=== PATIENT | male | born 1930 | race Caucasian/White ===

== ENCOUNTER 2018-12-27 12:45 | Emergency (ER) | payer MEDICARE, OTHER ==
[2018-12-27] MEDS ORDERED: Ondansetron 4 MG/2 ML SDV IVPUSH ONE (13:22)
[2018-12-27] MEDS ORDERED: Sodium Chloride 0.9% 1,000 ML IV ONE (13:22)
--- NOTE | 2018-12-27 14:05 | EDM.PDOC ---
<Rusty Bingham - Last Filed: 12/27/18 15:25> ED HPI GENERAL MEDICAL PROBLEM - General Chief Complaint: Cardiovascular Problem Stated Complaint: [facility] Time Seen by Provider: 12/27/18 12:56 - Related Data Allergies Allergy/AdvReac Type Severity Reaction Status Date / Time No Known Allergies Allergy Verified 12/27/18 12:53 Home Meds: Home Meds Hydrochlorothiazide 25 mg PO DAILY 09/26/16 [History] Levothyroxine 25 mcg PO DAILY 09/26/16 [History] Lisinopril [Prinivil] 20 mg PO DAILY 09/26/16 [History] Sildenafil [Revatio] 20 mg PO ASDIRECTED 09/26/16 [History] Simvastatin [Zocor] 40 mg PO DAILY 09/26/16 [History] Apixaban [Eliquis] 2.5 mg PO DAILY 12/27/18 [History] Nystatin/Triamcinolone Crm [Mycolog Crm] 1 applic TOP BID PRN 12/27/18 [History] metroNIDAZOLE [Metrocream] 1 applic TOP DAILY 12/27/18 [History] ED EXAM, GENERAL - Physical Exam Neurological: Oriented, CN II-XII Intact, No Motor/Sensory Deficits, Inattentive , Slow to Respond, Other (Unable to perform finger-nose or hand-flip) ED CARDIOLOGY PROCEDURES - Endotracheal Intubation Time of Intubation: 15:01 ET Intubation Indication: Airway Protection Preparation: Suction, Balloon Tested, BVM Set Up, Difficult Airway Equip Pre-Oxygenation: Assisted with BVM, 100% FiO2 Anesthesia Meds: Etomidate (6.8 mg), Vecuronium (10 mg) Placement: Orotracheal, Cuffed, Uncomplicated Placement Cords Visualized: Yes, Grade 1 ETT Size In mm: 8.0 Number of Attempts: 1 Confirmed By: CO2 Indicator, Bilateral Breath Sounds, Chest Xray Tube Secured By: By RT Course - Vital Signs Last Recorded V/S: Last Vital Signs Temp 98.4 F 12/27/18 16:00 Pulse 64 12/27/18 16:00 Resp 14 12/27/18 16:00 BP 116/58 L 12/27/18 16:00 Pulse Ox 100 12/27/18 16:00 - Orders/Labs/Meds Orders: Active Orders 24 hr Category Date Time Status EKG Documentation Completion [RC] ASDIRECTED Care 12/27/18 12:55 Active PATIENT RETYPE [BBK] Routine Lab 12/27/18 15:38 Ordered EKG 12 Lead [EK] Stat Ther 12/27/18 12:55 Ordered Labs: Laboratory Tests 12/27/18 12/27/18 12/27/18 Range/Units 14:35 14:35 14:35 WBC 8.57 (4.23-9.07) K/mm3 RBC 4.30 L (4.63-6.08) M/mm3 Hgb 12.9 L (13.7-17.5) gm/L Hct 38.4 L (40.1-51.0) % MCV 89.3 (79.0-92.2) fl MCH 30.0 (25.7-32.2) pg MCHC 33.6 (32.2-35.5) g/dl RDW Std Deviation 42.1 (35.1-43.9) fL Plt Count 122 L (163-337) K/mm3 MPV 9.7 (9.4-12.3) fl Neut % (Auto) 85.6 H (34.0-67.9) % Lymph % (Auto) 5.6 L (21.8-53.1) % Russell % (Auto) 8.1 (5.3-12.2) % Eos % (Auto) 0.4 L (0.8-7.0) Baso % (Auto) 0.1 (0.1-1.2) % Neut # (Auto) 7.34 H (1.78-5.38) K/mm3 Lymph # (Auto) 0.48 L (1.32-3.57) K/mm3 Russell # (Auto) 0.69 (0.30-0.82) K/mm3 Eos # (Auto) 0.03 L (0.04-0.54) K/mm3 Baso # (Auto) 0.01 (0.01-0.08) K/mm3 Manual Slide Review Normal smear PT (9.5-12.1) SECONDS INR Sodium 131 L (136-145) mEq/L Potassium 3.5 (3.5-5.1) mEq/L Chloride 97 L (98-107) mEq/L Carbon Dioxide 24 (21-32) mEq/L Anion Gap 13.5 (5-15) BUN 19 H (7-18) mg/dL Creatinine 1.3 (0.7-1.3) mg/dL Est Cr Clr Drug Dosing 37.80 mL/min Estimated GFR (MDRD) 52 (>60) mL/min BUN/Creatinine Ratio 14.6 (14-18) Glucose 114 (83-115) mg/dL Calcium 8.7 (8.5-10.1) mg/dL Total Bilirubin 0.6 (0.2-1.0) mg/dL AST 27 (15-37) U/L ALT 21 (16-63) U/L Alkaline Phosphatase 74 (46-116) U/L Total Protein 6.7 (6.4-8.2) g/dl Albumin 3.5 (3.4-5.0) g/dl Globulin 3.2 gm/dL Albumin/Globulin Ratio 1.1 (1-2) Blood Type O NEGATIVE Gel Antibody Screen Negative 12/27/18 Range/Units 14:58 WBC (4.23-9.07) K/mm3 RBC (4.63-6.08) M/mm3 Hgb (13.7-17.5) gm/L Hct (40.1-51.0) % MCV (79.0-92.2) fl MCH (25.7-32.2) pg MCHC (32.2-35.5) g/dl RDW Std Deviation (35.1-43.9) fL Plt Count (163-337) K/mm3 MPV (9.4-12.3) fl Neut % (Auto) (34.0-67.9) % Lymph % (Auto) (21.8-53.1) % Russell % (Auto) (5.3-12.2) % Eos % (Auto) (0.8-7.0) Baso % (Auto) (0.1-1.2) % Neut # (Auto) (1.78-5.38) K/mm3 Lymph # (Auto) (1.32-3.57) K/mm3 Russell # (Auto) (0.30-0.82) K/mm3 Eos # (Auto) (0.04-0.54) K/mm3 Baso # (Auto) (0.01-0.08) K/mm3 Manual Slide Review PT 12.4 H (9.5-12.1) SECONDS INR 1.14 Sodium (136-145) mEq/L Potassium (3.5-5.1) mEq/L Chloride (98-107) mEq/L Carbon Dioxide (21-32) mEq/L Anion Gap (5-15) BUN (7-18) mg/dL Creatinine (0.7-1.3) mg/dL Est Cr Clr Drug Dosing mL/min Estimated GFR (MDRD) (>60) mL/min BUN/Creatinine Ratio (14-18) Glucose (83-115) mg/dL Calcium (8.5-10.1) mg/dL Total Bilirubin (0.2-1.0) mg/dL AST (15-37) U/L ALT (16-63) U/L Alkaline Phosphatase (46-116) U/L Total Protein (6.4-8.2) g/dl Albumin (3.4-5.0) g/dl Globulin gm/dL Albumin/Globulin Ratio (1-2) Blood Type Gel Antibody Screen Meds: Medications Discontinued Medications Generic Name Dose Route Start Last Admin Trade Name Freq PRN Reason Stop Dose Admin Etomidate 6.8 mg 12/27/18 15:32 12/27/18 15:35 Amidate IVPUSH 12/27/18 15:33 6.8 mg ONETIME ONE Administration Factor IX (Pha) 1,500 unit 12/27/18 15:00 12/27/18 15:21 Kcentra IV 12/27/18 15:01 1,500 unit ONETIME ONE Administration Sodium Chloride 1,000 mls @ 999 mls/hr 12/27/18 13:22 12/27/18 13:55 Normal Saline IV 12/27/18 14:22 999 mls/hr ONETIME ONE Administration Labetalol HCl 5 mg 12/27/18 15:16 Normodyne IVPUSH 12/27/18 15:17 ONETIME STA Protocol Ondansetron HCl 4 mg 12/27/18 13:22 12/27/18 13:56 Zofran IVPUSH 12/27/18 13:23 4 mg ONETIME ONE Administration Vecuronium [place] 10 mg 12/27/18 15:33 12/27/18 15:36 Vecuronium IVPUSH 12/27/18 15:34 10 mg ONETIME ONE Administration - Re-Assessments/Exams Free Text/Narrative Re-Assessment/Exam: 12/27/18 14:27 Preliminary review of the CT of the head appears to demonstrate a left cerebellar infarct, with extension to the third and fourth ventricles, and, likely, to the posterior horns of the lateral ventricles. There is edema surrounding the left cerebellar hematoma. Images were pushed to [facility] at 14:12. Case discussed with [facility] at 14:14. Case then discussed with Dr. York at 14:20. He agreed with our plan to give the patient K Centra. He recommended that we keep the patient's systolic blood pressure under 140 mmHg. He accepted the patient for transfer to their ED, but advised that we determine whether or not he would benefit from endotracheal intubation prior to transfer. 12/27/18 15:07 The patient agreed to be intubated for airway protection. Because of a concern for increased intracranial pressure, the patient was given etomidate 6.8 mg and vecuronium 10 mg. Flight will be able to give him fentanyl or Versed en route. He was then intubated with an 8.0 OETT to 24 cm at the incisors. +fog in the ETT. Good bilateral breath sounds. + colorimetric change. PCXR pending. 12/27/18 15:15 Called by Linda Subramanian, the patient's daughter and power of estate planning attorney for healthcare. She lives in the [place] area. I formed her about what has occurred so far. Notified that the patient's BP has risen to 166/98, with a heart rate around 100. As above, we want to keep the patient's systolic blood pressure under 140, therefore I ordered 5 mg of labetalol. We can give additional, if needed. In the meantime, flight will start a Versed drip. 12/27/18 15:25 Portable chest radiograph reviewed. The cardiac silhouette is within normal limits. No pulmonary vascular congestion, and no pleural effusions seen on this AP view. No focal infiltrate, however, there is increased opacity throughout the lungs, consistent with pulmonary fibrosis. No pneumothorax. The tip of the OETT appears to be about 2 cm above the ava. The OGT is in the stomach via the esophagus. Formal read per the Radiologist pending. The portable chest x-ray image will be pushed to [facility]. Departure - Departure Disposition: DC/Tfer to Acute Hospital 02 Clinical Impression: Hemorrhagic stroke Instructions: Hemorrhagic Stroke Referrals: Rehan Andrade MD [Primary Care Provider] - Forms: ED Department Discharge - My Orders Last 24 Hours: My Active Orders 12/27/18 15:38 PATIENT RETYPE [BBK] Routine - Assessment/Plan Last 24 Hours: My Active Orders 12/27/18 15:38 PATIENT RETYPE [BBK] Routine <AgostoEstefanya - Last Filed: 12/27/18 18:13> ED HPI GENERAL MEDICAL PROBLEM - General Source of Information: Reports: Patient, Significant Other History Limitations: Reports: Other (lethargic) - History of Present Illness INITIAL COMMENTS - FREE TEXT/NARRATIVE: Pt is 88 yo M w/ h/o Afib on Eliquis, HTN, HLD, Hypothyroid comes in today with complaints of diplopia and possible fall. He has never had this diplopia before. Most history is obtained from as he is very lethargic, nauseated, and currently vomiting. Original BP in ED 96/49. He was able to eat breakfast this morning around 830 with no issues. He was at home when his diploplia randomly began, had to sit on the ground and called a family member who then called EMS to bring him here. He apparently doesn't think he fell and had no LOC , but there is a small abrasion to the L ear and new bruising to L elbow per . He does have a history of syncope in the past, was last seen in the ED for syncope likely 2/2 medication. He is currently taking Eliquis, HCTZ, Lisinopril, Revatio, Simvastatin, Levothyroxine. Apparently he did take 5 tabs of Revatio this AM w/ the expectation of intercourse which did not happen. He denies any F/C, chest pain, cough, abdominal pain, diarrhea, GI/ symptoms. No other complaints at this time. Revatio reportedly can have side effect of diplopia in <2%. Original BP in ED 96/49; pt took his HCTZ, Lisinopril and Revatio this AM. Past Medical History Cardiovascular History: Reports: High Cholesterol, Hypertension Musculoskeletal History: Reports: Arthritis, Back Pain, Chronic Endocrine/Metabolic History: Reports: Hypothyroidism - Past Surgical History HEENT Surgical History: Reports: Cataract Surgery GI Surgical History: Reports: Colonoscopy Social & Family History - Tobacco Use Smoking Status *Q: Former Smoker Used Tobacco, but Quit: Yes Month/Year Tobacco Last Used: 10/1959 - Caffeine Use Caffeine Use: Reports: Coffee - Recreational Drug Use Recreational Drug Use: No ED ROS GENERAL - Review of Systems Review Of Systems: See Below Constitutional: Reports: Other (Lethargic). Denies: Fever, Chills HEENT: Reports: Glasses, Other (L ear has small abrasion) Respiratory: Reports: No Symptoms. Denies: Shortness of Breath, Cough Cardiovascular: Reports: Blood Pressure Problem, Edema. Denies: Chest Pain, Lightheadedness GI/Abdominal: Reports: No Symptoms, Abdominal Pain, Nausea, Vomiting. Denies: Diarrhea : Reports: No Symptoms Musculoskeletal: Reports: No Symptoms Skin: Reports: Bruising (L elbow, new per ), Wound (small abrasion to L ear) Neurological: Reports: Syncope (history of syncope 2016; does not feel he had LOC today). Denies: Confusion, Headache, Numbness, Tingling, Trouble Speaking, Difficulty Walking, Weakness, Change in Speech, Gait Disturbance Psychiatric: Reports: No Symptoms Hematologic/Lymphatic: Reports: Easy Bleeding (on Eliquis) ED EXAM, GENERAL - Physical Exam Exam: See Below Exam Limited By: Other (Lethargic and nauseated/vomiting) General Appearance: Lethargic Eye Exam: Bilateral Eye: Abnormal EOM (difficulty tracking), Normal Inspection, PERRL Ears: Normal External Exam, Hearing Grossly Normal Nose: Normal Inspection, Normal Mucosa, No Blood Throat/Mouth: Normal Inspection, Normal Lips, Normal Teeth, Normal Gums, Normal Oropharynx, Normal Voice, No Airway Compromise Head: Normocephalic, Other (small abrasion L ear) Neck: Normal Inspection, Supple, Non-Tender, Full Range of Motion Respiratory/Chest: No Respiratory Distress, Lungs Clear, Normal Breath Sounds, No Accessory Muscle Use, Chest Non-Tender Cardiovascular: Normal Peripheral Pulses, No Gallop, No JVD, No Murmur, No Rub, Bradycardia, Irregularly Irregular, Other (1+ edema bilateral LE) Peripheral Pulses: 2+: Posterior Tibial (L), Posterior Tibial (R), Dorsalis Pedis (L), Dorsalis Pedis (R) GI/Abdominal: Normal Bowel Sounds, Soft, Non-Tender, No Organomegaly, No Distention, No Abnormal Bruit, No Mass Back Exam: Normal Inspection Extremities: Normal Inspection, Normal Range of Motion, Non-Tender, Normal Capillary Refill, Pedal Edema (1+ pitting bilaterally) Neurological: Alert, Oriented, Other Skin Exam: Warm, Dry, Intact, Normal Color, No Rash EKG INTERPRETATION EKG Date: 12/27/18 Time: 12:57 Rhythm: A-Fib Rate (Beats/Min): 57 (Bradycardic) [place]: Normal P-Wave: Present QRS: Normal ST-T: Normal QT: Normal Course - Orders/Labs/Meds Labs: Laboratory Tests 12/27/18 12/27/18 12/27/18 Range/Units 14:35 14:35 14:35 WBC 8.57 (4.23-9.07) K/mm3 RBC 4.30 L (4.63-6.08) M/mm3 Hgb 12.9 L (13.7-17.5) gm/L Hct 38.4 L (40.1-51.0) % MCV 89.3 (79.0-92.2) fl MCH 30.0 (25.7-32.2) pg MCHC 33.6 (32.2-35.5) g/dl RDW Std Deviation 42.1 (35.1-43.9) fL Plt Count 122 L (163-337) K/mm3 MPV 9.7 (9.4-12.3) fl Neut % (Auto) 85.6 H (34.0-67.9) % Lymph % (Auto) 5.6 L (21.8-53.1) % Russell % (Auto) 8.1 (5.3-12.2) % Eos % (Auto) 0.4 L (0.8-7.0) Baso % (Auto) 0.1 (0.1-1.2) % Neut # (Auto) 7.34 H (1.78-5.38) K/mm3 Lymph # (Auto) 0.48 L (1.32-3.57) K/mm3 Russell # (Auto) 0.69 (0.30-0.82) K/mm3 Eos # (Auto) 0.03 L (0.04-0.54) K/mm3 Baso # (Auto) 0.01 (0.01-0.08) K/mm3 Manual Slide Review Normal smear PT (9.5-12.1) SECONDS INR Sodium 131 L (136-145) mEq/L Potassium 3.5 (3.5-5.1) mEq/L Chloride 97 L (98-107) mEq/L Carbon Dioxide 24 (21-32) mEq/L Anion Gap 13.5 (5-15) BUN 19 H (7-18) mg/dL Creatinine 1.3 (0.7-1.3) mg/dL Est Cr Clr Drug Dosing 37.80 mL/min Estimated GFR (MDRD) 52 (>60) mL/min BUN/Creatinine Ratio 14.6 (14-18) Glucose 114 (83-115) mg/dL Calcium 8.7 (8.5-10.1) mg/dL Total Bilirubin 0.6 (0.2-1.0) mg/dL AST 27 (15-37) U/L ALT 21 (16-63) U/L Alkaline Phosphatase 74 (46-116) U/L Total Protein 6.7 (6.4-8.2) g/dl Albumin 3.5 (3.4-5.0) g/dl Globulin 3.2 gm/dL Albumin/Globulin Ratio 1.1 (1-2) Blood Type O NEGATIVE Gel Antibody Screen Negative 12/27/18 Range/Units 14:58 WBC (4.23-9.07) K/mm3 RBC (4.63-6.08) M/mm3 Hgb (13.7-17.5) gm/L Hct (40.1-51.0) % MCV (79.0-92.2) fl MCH (25.7-32.2) pg MCHC (32.2-35.5) g/dl RDW Std Deviation (35.1-43.9) fL Plt Count (163-337) K/mm3 MPV (9.4-12.3) fl Neut % (Auto) (34.0-67.9) % Lymph % (Auto) (21.8-53.1) % Russell % (Auto) (5.3-12.2) % Eos % (Auto) (0.8-7.0) Baso % (Auto) (0.1-1.2) % Neut # (Auto) (1.78-5.38) K/mm3 Lymph # (Auto) (1.32-3.57) K/mm3 Russell # (Auto) (0.30-0.82) K/mm3 Eos # (Auto) (0.04-0.54) K/mm3 Baso # (Auto) (0.01-0.08) K/mm3 Manual Slide Review PT 12.4 H (9.5-12.1) SECONDS INR 1.14 Sodium (136-145) mEq/L Potassium (3.5-5.1) mEq/L Chloride (98-107) mEq/L Carbon Dioxide (21-32) mEq/L Anion Gap (5-15) BUN (7-18) mg/dL Creatinine (0.7-1.3) mg/dL Est Cr Clr Drug Dosing mL/min Estimated GFR (MDRD) (>60) mL/min BUN/Creatinine Ratio (14-18) Glucose (83-115) mg/dL Calcium (8.5-10.1) mg/dL Total Bilirubin (0.2-1.0) mg/dL AST (15-37) U/L ALT (16-63) U/L Alkaline Phosphatase (46-116) U/L Total Protein (6.4-8.2) g/dl Albumin (3.4-5.0) g/dl Globulin gm/dL Albumin/Globulin Ratio (1-2) Blood Type Gel Antibody Screen - Re-Assessments/Exams Free Text/Narrative Re-Assessment/Exam: 12/27/18 12:55 EKG ordered. 12/27/18 12:57 EKG reviewed by myself and Dr. Bingham. Shows Afib w/ bradycardia. No ischemic changes. Early transition. No LAD/RAD. No LVH/RVH. No IVCP. QTC WNL. 12/27/18 13:22 Zofran and IVF 1 L bolus ordered BP improving to 130/64 12/27/18 13:[address] ordered; MRI ordered but they currently are using for a pt and won't be available for another hour or so. 12/27/18 14:20 Hold IVF as need to keep blood pressure under 140 mmHg per neurologist 12/27/18 14:24 CBC, CMP, PT/INR/PTT, Type and Screen ordered 12/27/18 14:35 CBC shows Hgb 12.9 PT 12.4, INR 1.14 BMP shows Na low at 131 Departure - Departure Time of Disposition: 15:30 Reason for Transfer *Q: Other ([facility]Neurology) Condition: Critical
--- NOTE | 2018-12-27 14:26 | CT ---
Head CT Technique: Multiple axial sections through the brain were obtained. Intravenous contrast was not utilized. Comparison: No prior intracranial imaging. Findings: Ventricles along with basal cisterns and sulci over the convexities are moderately prominent. Moderately severe diminished density is noted within the periventricular and subcortical white matter compatible with small vessel ischemic demyelination change. Left cerebellar hemisphere hemorrhage is seen measuring about 2.9 cm in size. Small amount of surrounding edema is seen. There is blood that ruptures into the fourth ventricle with additional blood being seen within the aqueduct of Sylvius and within the third ventricle. No other intracranial hemorrhage is seen. No midline shift or mass effect is seen. Impression: 1. Left cerebellar hemorrhage with size as noted above. This hemorrhage ruptures into the fourth ventricle with additional blood being seen within the fourth ventricle, aqueduct of Sylvius and within the third ventricle. 2. Other senescent change as noted above. Diagnostic code #5
[2018-12-27] MEDS ORDERED: Factor IX Complex Human 500 UNIT VIAL IV ONE (15:00)
[2018-12-27] MEDS ORDERED: Labetalol 100 MG/20 ML MDV IVPUSH STA (15:16)
[2018-12-27] MEDS ORDERED: Etomidate 2 MG/ML 20 ML SDV IVPUSH ONE (15:32)
--- NOTE | 2018-12-27 15:40 | CR ---
Chest: Portable supine view of the chest was obtained. Comparison: Prior chest x-ray of 09/26/16. Heart size is within normal limits for portable technique. Tortuous thoracic aorta is seen. Lung markings are slightly increased possibly due to mild neurogenic pulmonary vascular congestion. Tip of nasogastric tube lies within the stomach. Endotracheal tube is seen with tip lying at the level of the clavicles. Impression: 1. Slightly increased lung markings possibly due to mild pulmonary vascular congestion on a neurogenic etiology. 2. Tip of endotracheal tube and tip of nasogastric tube felt to be satisfactory in position. Diagnostic code #3
[2018-12-27 16:04] VITALS: BP 116/58
== END 2018-12-27 15:35 ==
LOC: JD.ED 12:45
DX: I62.9 Nontraumatic intracranial hemorrhage, unspecified (principal); I10 Essential (primary) hypertension; E78.5 Hyperlipidemia, unspecified; Z79.01 Long term (current) use of anticoagulants; I48.91 Unspecified atrial fibrillation; Z87.891 Personal history of nicotine dependence; Z79.899 Other long term (current) drug therapy
CPT/HCPCS: 31500; 36415; 51702; 70450; 71045; 80053; 85025; 85610; 86850; 86900; 86901; 93005; 96361; 96374; 96375; 99285; C9132; J2405; J3490; J7040